=== PATIENT | male | born 1960 | race Caucasian/White ===

== ENCOUNTER 2019-05-02 08:36 | Day surgery (SDC) | payer OTHER ==
[~2019-05-02] VITALS: Ht 177.8 cm; Wt 101.1 kg
[~2019-05-02 08:36] MED LIST: AMLO-150 PO; BACITRACIN 50,000 UNIT ONE; BUPIVACAINE/EPI 0.5% 1:200K ONE; DIAZ5TAB PO; GABA600T14 PO; HYDR-3245 PO; LISI-170 PO; LISI2.5T PO; METF500T12 PO; METF500T17 PO; OXYC-302 PO; OXYC15TA PO; PREG100C PO; PREG200C PO; PREG50CA PO; SIMV20TA3 PO; SIMV5TAB14 PO; THROMBIN 5,000 UNIT VIAL TP ONE; TIZA4CAP PO; VANCOMYCIN 1,000 MG ONE; ZOLP10TA5 PO; methylPREDNISolone SOD SUCC 125 MG/2 ML ONE
[2019-05-02] MEDS ORDERED: LACTATED RINGERS 1,000 ML IV SCH (09:19)
[2019-05-02 10:01] VITALS: BP 112/72
[2019-05-02] MEDS ORDERED: TAMS-11 PO (10:18)
[2019-05-02] MEDS ORDERED: MORPHINE ER PO (10:18)
[2019-05-02] MEDS ORDERED: FENTANYL PF 250 MCG/5ML ONE (10:40)
[2019-05-02] MEDS ORDERED: MIDAZOLAM 1 MG/ML, 2ML ONE (10:40)
[2019-05-02] MEDS ORDERED: ROCURONIUM 10MG/ML,5ML ONE (11:06)
[2019-05-02] MEDS ORDERED: SUCCINYLCHOLINE 20 MG/ML, 10ML ONE (11:06)
[2019-05-02] MEDS ORDERED: ONDANSETRON 2MG/ML, 2ML ONE (11:06)
[2019-05-02] MEDS ORDERED: PROPOFOL 10 MG/ML, 20ML ONE (11:06)
[2019-05-02] MEDS ORDERED: LABETALOL 5MG/ML, 20ML IV PRN (11:30)
[2019-05-02] MEDS ORDERED: EPHEDRINE 50 MG/ML, 1ML IVPush PRN (11:30)
[2019-05-02] MEDS ORDERED: PROMETHAZINE 25 MG/ML, 1ML IV PRN (11:30)
[2019-05-02] MEDS ORDERED: MIDAZOLAM 1 MG/ML, 2ML IV PRN (11:30)
[2019-05-02] MEDS ORDERED: ACETAMINOPHEN 325 MG TABLET PO PRN (11:30)
[2019-05-02] MEDS ORDERED: ALBUTEROL SULFATE 2.5 MG/3 ML NPPB PRN (11:30)
[2019-05-02] MEDS ORDERED: HYDROmorphone 2 MG/ML, 1ML IVPush PRN (11:30)
[2019-05-02] MEDS ORDERED: DIAZEPAM 5 MG/ML, 2ML IVPush PRN (11:30)
[2019-05-02] MEDS ORDERED: MORPHINE SULFATE 4 MG/ML, 1ML IVPush PRN (11:30)
[2019-05-02] MEDS ORDERED: HALOPERIDOL 5 MG/ML IV PRN (11:30)
[2019-05-02] MEDS ORDERED: PROMETHAZINE 12.5 MG SUPP PR PRN (11:30)
[2019-05-02] MEDS ORDERED: FENTANYL PF 100 MCG/2ML IV PRN (11:30)
[2019-05-02] MEDS ORDERED: ONDANSETRON 2MG/ML, 2ML IV PRN (11:30)
[2019-05-02] MEDS ORDERED: ONDANSETRON ODT 8 MG PO PRN (11:30)
[2019-05-02] MEDS ORDERED: MEPERIDINE/PF 25MG/0.5ML IVPush PRN (11:30)
[2019-05-02] MEDS ORDERED: OXYcodone 5 MG/5 ML ORAL.SOL UDC PO PRN (11:30)
[2019-05-02] MEDS ORDERED: hydrALAzine 20 MG/ML, 1ML IV PRN (11:30)
== END 2019-05-02 13:00 | disposition home or self-care (01) ==
LOC: OUT 08:36
PROVIDERS: ATTEND Neurological Surgery
DX: M54.17 Radiculopathy, lumbosacral region (principal); Z53.8 Procedure and treatment not carried out for other reasons; S31.821A Laceration without foreign body of left buttock, initial encounter; M48.061 Spinal stenosis, lumbar region without neurogenic claudication; M48.07 Spinal stenosis, lumbosacral region; E11.9 Type 2 diabetes mellitus without complications; I10 Essential (primary) hypertension; E78.5 Hyperlipidemia, unspecified; J44.9 Chronic obstructive pulmonary disease, unspecified; E66.9 Obesity, unspecified; F17.210 Nicotine dependence, cigarettes, uncomplicated; Z68.31 Body mass index [BMI] 31.0-31.9, adult; Z79.84 Long term (current) use of oral hypoglycemic drugs; Z79.891 Long term (current) use of opiate analgesic; Z79.899 Other long term (current) drug therapy; Z88.5 Allergy status to narcotic agent; Z98.1 Arthrodesis status; Z96.642 Presence of left artificial hip joint; Z83.3 Family history of diabetes mellitus; Z82.3 Family history of stroke; Z82.49 Family history of ischemic heart disease and other diseases of the circulatory system; X58.XXXA Exposure to other specified factors, initial encounter; Y93.89 Activity, other specified; Y92.89 Other specified places as the place of occurrence of the external cause; Y99.8 Other external cause status
CPT/HCPCS: 63047; 63048; 82962; J0330; J2250; J2405; J2704; J3010; J7120; J3370; J2930

== ENCOUNTER → 2019-09-05 | Outpatient (CLI) | payer OTHER ==
[~2019-09-05] MED LIST changes: -BACITRACIN 50,000 UNIT ONE; -BUPIVACAINE/EPI 0.5% 1:200K ONE; +MORPHINE ER PO; +TAMS-11 PO; -THROMBIN 5,000 UNIT VIAL TP ONE; -VANCOMYCIN 1,000 MG ONE; -methylPREDNISolone SOD SUCC 125 MG/2 ML ONE
== END | disposition home or self-care (01) ==
LOC: RAD 10:45
PROVIDERS: ATTEND Nurse Practitioner Critical Care Medicine
DX: M41.86 Other forms of scoliosis, lumbar region (principal); M43.26 Fusion of spine, lumbar region; M54.6 Pain in thoracic spine; Z87.891 Personal history of nicotine dependence; E11.8 Type 2 diabetes mellitus with unspecified complications; Z83.3 Family history of diabetes mellitus; Z82.49 Family history of ischemic heart disease and other diseases of the circulatory system; Z86.73 Personal history of transient ischemic attack (TIA), and cerebral infarction without residual deficits
CPT/HCPCS: 72110